=== PATIENT | male | born 1980 | race Caucasian/White ===

== ENCOUNTER → 2016-05-01 | Outpatient (CLI) | payer BC ==
[~2016-05-01] MED LIST: Gadobutrol 10 mMOL/10 ML SDV IVPUSH STA
--- NOTE | 2016-05-02 09:18 | MR ---
EXAMINATION: MRI of the brain with and without contrast. TECHNIQUE: Multiplanar and multisequence imaging of the brain without and following the administrati on of 9 mL of Gadavist. HISTORY: Migraine. FINDINGS: Cerebral hemispheres and the deep nuclei are without hemorrhage, mass, edema, gliosis, enhancement o r atrophy. No extraaxial collections or hemorrhage. Ventricular system is of normal size and configuration without hydrocephalus. Brainstem and cerebellum are without hemorrhage, mass, edema, gliosis, enhancement or atrophy. [place] tid basilar artery flow voids are intact. 7th and 8th nerve complexes are intact. Cochleae and vestibula are intact. Otomastoid airspaces ar e clear. No internal auditory canal or cerebellopontine angle masses or enhancement. The paranasal sinuses are clear. Globes, optic nerves, orbital apices, optic chiasm, optic tracts, lateral geniculate and visual colleen ices are unremarkable. The pituitary and sella turcica are unremarkable. No meningeal enhancement. The craniocervical junction is unremarkable. No siderosis or evidence of vascular malformation. The calvarium is intact. IMPRESSION: 1. No abnormal intracranial findings.
== END ==
LOC: MW.MRI 15:16
PROVIDERS: ATTEND Psychiatry & Neurology Neuromuscular Medicine
DX: G43.009 Migraine without aura, not intractable, without status migrainosus (principal)
CPT/HCPCS: 70553; A9585

== ENCOUNTER 2022-05-24 08:16 | Day surgery (SDC) | payer BC ==
[~2022-05-24 08:16] MED LIST changes: -Gadobutrol 10 mMOL/10 ML SDV IVPUSH STA; +Lactated Ringers 1,000 ML IV SCH; +ceFAZolin 2 GM in Premix Bag 1 BAG IV SCH
[2022-05-24] MEDS ORDERED: HYDROmorphone 1 MG/ML Syringe IVPUSH PRN (08:37)
[2022-05-24] MEDS ORDERED: fentaNYL 50 MCG/ML SDV IVPUSH PRN (08:37)
[2022-05-24] MEDS ORDERED: Ondansetron 4 MG/2 ML SDV IVPUSH PRN (08:37)
[2022-05-24] MEDS ORDERED: Metoclopramide 10 MG/2 ML SDV IVPUSH PRN (08:37)
[2022-05-24] MEDS ORDERED: Naloxone 0.4 MG/ML SDV IVPUSH PRN (08:37)
[2022-05-24] MEDS ORDERED: Albuterol 0.083% 2.5 MG/3 ML Neb Soln NEB PRN (08:37)
[2022-05-24] MEDS ORDERED: Morphine 2 MG/ML SYRINGE IVPUSH PRN (08:37)
[2022-05-24] MEDS ORDERED: Ropivacaine 0.5% 5 MG/ML 30 ML SDV ONE (09:16)
[2022-05-24] MEDS ORDERED: Lidocaine 2% 5 ML SDV ONE (09:27)
[2022-05-24] MEDS ORDERED: Dexmedetomidine 200 MCG/2 ML SDV ONE (09:57)
[2022-05-24] MEDS ORDERED: Propofol 200 MG/20 ML SDV ONE (09:58)
[2022-05-24] MEDS ORDERED: Rocuronium Bromide 50 MG/5 ML Syringe ONE ×2 (09:58→11:15)
[2022-05-24] MEDS ORDERED: Ketorolac 30 MG/ML SDV ONE (09:58)
[2022-05-24] MEDS ORDERED: Dexamethasone 4 MG/ML 5 ML MDV ONE (09:58)
[2022-05-24] MEDS ORDERED: Ondansetron 4 MG/2 ML SDV ONE (09:58)
[2022-05-24] MEDS ORDERED: fentaNYL 100 MCG/2 ML SDV ONE (10:19)
[2022-05-24] MEDS ORDERED: Phenylephrine HCl 0.5 MG/5 ML AMP ONE (10:41)
[2022-05-24] MEDS ORDERED: ePHEDrine 50 MG/ML SDV ONE (10:45)
[2022-05-24] MEDS ORDERED: ceFAZolin 2 GM Vial ONE (10:50)
[2022-05-24] MEDS ORDERED: Sugammadex Sodium 200 MG/2 ML VIAL ONE (12:21)
[2022-05-24] MEDS ORDERED: Phenylephrine 1% 10 MG/ML SDV ONE (12:22)
[2022-05-24 13:27] VITALS: BP 118/61; PULSE 87
== END 2022-05-24 13:30 | disposition home or self-care (01) ==
LOC: MW.SDS 08:16
PROVIDERS: ATTEND Orthopaedic Surgery
DX: S42.252A Displaced fracture of greater tuberosity of left humerus, initial encounter for closed fracture (principal); I10 Essential (primary) hypertension; Z79.899 Other long term (current) drug therapy; W01.0XXA Fall on same level from slipping, tripping and stumbling without subsequent striking against object, initial encounter
CPT/HCPCS: 23630; 64415; 76000; J0690; J1100; J2370; J2405; J2704; J2795; J3010; J3490; J7120; J1885